=== PATIENT | male | born 2000 | race Asian ===

== ENCOUNTER → 2024-01-04 12:07 | Outpatient (CLI) | payer OTHER, SELFPAY ==
--- NOTE | 2024-01-04 12:11 | DI.MRI.S_ITS ---
PROCEDURE: MR ORBITS FACE NECK WO/W CON INDICATIONS: LOCALIZED SWELLING,MASS AND LUMP TECHNIQUE: Sagittal/axial/coronal T1 spin echo and STIR. After the administration of contrast, axial/coronal/sagittal T1 fast spin echo with fat saturation through the neck. COMPARISON: None. FINDINGS: Image quality: Excellent. Lymph nodes: At the site of clinical concern involving the left neck, there are enlarged level 4 lymph nodes, with the largest measuring 22 x 30 mm in greatest axial dimension. Enlarged supraclavicular lymph nodes are also seen, measuring up to 31 x 20 mm in greatest axial dimension. There is a matted group of subpectoral/axillary lymph nodes seen, which are incompletely seen, yet measures at least 5 x 4 cm. Vessels: Visualized vasculature appears normal, with normal flow voids and enhancement. Neck spaces: The oropharynx, nasopharynx and pharynx are unremarkable, without mucosal lesions seen. Vocal cords, false vocal cords, pyriform sinuses, epiglottis, vallecula, and tongue base all appear normal. Extramucosal spaces of the neck also appear unremarkable. Glands: The parotid and submandibular glands appear normal. Thyroid gland demonstrates a mass associated with 4.1 x 3.2 cm. Miscellaneous: Visualized brain and orbits appear normal. Lung apices appear clear. Superficial soft tissues appear normal. Visualized sinuses and mastoids appear clear. Bones: Marrow has normal overall signal. IMPRESSION: Abnormally enlarged lymph nodes seen at the site of palpable concern, with additional suspicious lymph node seen elsewhere. Differential diagnosis includes lymphoma versus metastatic thyroid cancer, given the nodule associated with the left thyroid. Dictated by: James Otero M.D. on 01/04/2024 at 12:45 Approved by: James Otero M.D. on 01/05/2024 at 11:57
== END ==
DX: R22.1 Localized swelling, mass and lump, neck (principal); R59.0 Localized enlarged lymph nodes
CPT/HCPCS: 70543; A9579